=== PATIENT | male | born 1940 | race Caucasian/White ===

== ENCOUNTER → 2019-04-15 | Outpatient (CLI) | payer MEDICARE, OTHER ==
--- NOTE | 2019-04-15 15:25 | KCIC ---
MRI Lumbar Spine without contrast History: Lumbago, right sciatica, arthritis, right leg numbness Technique: Multiplanar, multi sequential noncontrast MR imaging was performed of the lumbar spine. Comparison: None Findings: Lumbar vertebral body stature is maintained. There is negligible grade 1 anterior spondylolisthesis L4-5 and L5-S1. Conus terminates near T12-L1. There is component of interbody calcification L5-S1. There is mild degenerative disc disease L2-3 through L5-S1, mild disc desiccation L1-2. There are anterior annular tears L3-4 and L4-5. There is some edema of the right L5 pedicle extending to the facet articular process more likely reactive/degenerative in etiology. There are probable cysts of the renal pelves bilaterally although hydronephrosis not excluded. L1-L2: Spinal canal and neural foramina are adequate, this level not included on the axial images. L2-L3: There is fairly severe buckling of the ligamentum flavum and moderate to severe facet degenerative change, also prominence of posterior epidural fat centrally. There is disc osteophyte complex, superimposed bulge about 2 to 3 mm AP. Combination of findings results in moderate to severe spinal stenosis, left greater than right lateral recess stenosis. There is limited preserved subarachnoid space. There is mild posterior narrowing of the left neural foramen, [id number] narrowing on the right. L3-L4: There is moderate facet degenerative change and mild buckling of the ligamentum flavum. There is minimal disc osteophyte complex and bulge. There is mild narrowing of the spinal canal including narrowing of the far lateral recesses bilaterally. There is moderate to severe neural foramina compromise bilaterally by facet degenerative change and disc osteophyte complex. L4-L5: There is fairly severe facet degenerative change and mild to moderate buckling of the ligament flavum. There is very minimal posterior disc osteophyte complex and bulge. Combination of findings results in severe spinal stenosis, complete effacement of subarachnoid space. There is severe lateral recess stenosis bilaterally with impingement of the descending L5 nerve roots. There is moderate left greater than right neural foramina compromise. L5-S1: There is moderate to severe facet degenerative change greater on the right. Spinal canal is overall adequate. There is minimal narrowing of the left neural foramen, right neural foramen adequate. Impression: 1. There is severe spinal stenosis at L4-5 and to a somewhat lesser degree at L2-3 as described. There is mild spinal stenosis L3-4. 2. There is multilevel facet degenerative change, negligible grade 1 anterior spondylolisthesis L4-5 and L5-S1. 3. There is moderate to severe neural foramina compromise bilaterally at L3-4, to a lesser degree bilaterally at L4-5 and on the right at L2-3. 4. Not fully evaluated, there are likely cysts of the renal pelves bilaterally although would be difficult to exclude component of hydronephrosis. Electronically signed by: Maverick Ji MD (04/15/2019 3:21 PM) [id number]
== END | disposition home or self-care (01) ==
LOC: KCIC MRI 14:05
PROVIDERS: ATTEND Physician Assistant Medical
DX: M43.17 Spondylolisthesis, lumbosacral region (principal); M51.37 Other intervertebral disc degeneration, lumbosacral region; M51.36 Other intervertebral disc degeneration, lumbar region; M25.78 Osteophyte, vertebrae; M48.061 Spinal stenosis, lumbar region without neurogenic claudication; M54.41 Lumbago with sciatica, right side
CPT/HCPCS: 72148

== ENCOUNTER → 2022-04-01 | Outpatient (CLI) | payer MEDICARE, OTHER ==
--- NOTE | 2022-04-02 08:16 | KCIC ---
EXAM: MRI RIGHT ELBOW DATE: 04/01/2022 11:00 AM CLINICAL INDICATION: Reason: RIGHT ELBOW PAIN / Spl. Instructions: / History: Pop and pain in rt elb ow on March 19. Bruising around joint line. COMPARISON: None. TECHNIQUE: Multiplanar, multisequence MR imaging of the right elbow was performed without IV contrast FINDINGS: No elbow joint effusion. No fluid distention of the olecranon bursa. Fluid cleft is seen at the common extensor tendon attachment with the lateral epicondyle with small a ssociated ossicle. Mild increased signal within the radial collateral ligament and lateral ulnar panda ateral ligament at the lateral epicondylar attachment. There is mild increased signal at the epicondylar attachment of the common flexor tendon origin. The ulnar collateral ligament is intact. There is a full-thickness tear of the biceps aponeurosis with approximately 2 cm gap. Mild associated soft tissue edema and bicipitoradial bursal distention. The brachialis is intact Triceps tendon is intact with normal signal and morphology. Jointline preserved; articular cartilage preserved. Negative osteochondral lesion. Mild edema about t he ulnar nerve posterior to the lateral condyle. No acute fracture or osteonecrosis. IMPRESSION: 1. Full-thickness tear of the biceps at the radial attachment with approximately 2 cm gap. Mild bici pitoradial bursal distention and soft tissue edema. 2. Partial-thickness tear at the lateral epicondylar attachment of the extensor tendons. Given the s mall ossicle this may be acute on chronic. These findings may be seen with lateral epicondylitis. 3. Mild increased signal of the medial epicondylar attachment with small fluid cleft, partial thickn ess tear and tendinosis. Electronically signed by: Odin Busch MD (04/02/2022 8:14 AM) [id number]
== END ==
LOC: KCIC MRI 09:29
PROVIDERS: ATTEND Physician Assistant Medical
DX: S46.211A Strain of muscle, fascia and tendon of other parts of biceps, right arm, initial encounter (principal); X58.XXXA Exposure to other specified factors, initial encounter; Y93.89 Activity, other specified; Y92.89 Other specified places as the place of occurrence of the external cause; Y99.8 Other external cause status
CPT/HCPCS: 73221